=== PATIENT | male | born 1945 | race Hispanic/Latino ===

== ENCOUNTER → 2018-03-20 11:19 | Outpatient (CLI) | payer BC, MEDICARE, SELFPAY ==
[2018-03-20 12:40] LABS: Blood Urea Nitrogen 48 mg/dL (9-20); Calcium 9.3 mg/dL (8.4-10.2); Carbon Dioxide 21 mmol/L (22-32); Chloride 111 mmol/L (98-107); Estimated Glomerular Filt Rate 33.1 mL/min (>60); Glucose 95 mg/dL (80-110); HEMOLYSIS < 15 (0-50); Sodium 145 mmol/L (137-145)
[2018-03-20 12:41] LABS: Potassium 5.7 mmol/L (3.4-5.1)
== END ==
PROVIDERS: Visit Provider Clinical Nurse Specialist Adult Health
DX: N18.4 Chronic kidney disease, stage 4 (severe) (principal)
CPT/HCPCS: 36415; 80048